=== PATIENT | female | born 1990 | race African-American/Black ===

== ENCOUNTER → 2019-02-20 | Outpatient (CLI) | payer OTHER | LOC: COL.LAB 07:19 | PROVIDERS: Family Medicine | DX: Z30.017 Encounter for initial prescription of implantable subdermal contraceptive (principal) ==

== ENCOUNTER 2019-05-13 07:09 | Emergency (ER) | payer OTHER ==
[~2019-05-13] VITALS: Ht 160 cm; Wt 107.7 kg
[2019-05-13 07:14] VITALS: TEMP 98.6
[2019-05-13 10:40] VITALS: BP 134/94; PULSE 91
== END 2019-05-13 10:40 | disposition home or self-care (01) ==
LOC: COL.ER 07:09
DX: Z11.3 Encounter for screening for infections with a predominantly sexual mode of transmission (principal)